=== PATIENT | male | born 1975 | race Caucasian/White ===

== ENCOUNTER 2016-11-19 13:46 | Inpatient (IN) | payer OTHER ==
[2016-11-19 17:01] VITALS: BMI 34.8
--- NOTE | 2016-11-19 20:40 | HP ---
COWS - Scale Resting Pulse: 0= DC 80 or Below Sweatin=Flushed/Facial Moisture Restless Observation: 5= Unable to Sit Still Pupil Size: 1= Pupils >than Normal Bone or Joint Aches: 4=Acute Joint/Muscle Pain Runny Nose/ Eye Tearin= Runny Nose/Eyes GI Upset > 30mins: 3= Vomiting/Diarrhea Tremor Observation: 1= Tremor [place], Not Seen Yawning Observation: 0= None Anxiety or Irritability: 2=Irritable/Anxious Goose Flesh Skin: 0=Smooth Skin COWS Score: 20 CIWA Score - CIWA Score Nausea/Vomitin Muscle Tremors: 4-Moderate,w/Arms Extend Anxiety: 4-Mod. Anxious/Guarded Agitation: 4-Moderately Restless Paroxysmal Sweats: 3 Orientation: 0-Oriented Tacttile Disturbances: 0-None Auditory Disturbances: 0-None Visual Disturbances: 0-None Headache: 2-Mild CIWA-Ar Total Score: 20 Admission ROS BHS - HPI Chief Complaint: C/O OPIOID AND BENZO DEPENDENCE. SEEKING DETOX TXMENT Allergies/Adverse Reactions: Allergies Allergy/AdvReac Type Severity Reaction Status Date / Time No Known Allergies Allergy Verified 11/19/16 20:34 History of Present Illness: 41 Y.O. MALE WITH LONG HX/O OF OPIOID DEPENDENCE ADMITTED TO DETOX. SELF REFERRED. DENIES ANY RECENT DETOX/ REHAB SERVICES. DENIES ANY SIGNIFICANT PERIOD OF CLEAN TIME. Exam Limitations: No Limitations - Ebola screening Have you traveled outside of the country in the last 21 days: No Have you had contact with anyone from an Ebola affected area: No Have you been sick,other than usual withdrawal symptoms: No Do you have a fever: No - Review of Systems Constitutional: Chills, Loss of Appetite, Malaise, Night Sweats, Changes in sleep EENT: reports: Nose Congestion (RUNNY NOSE), Other (DENTAL PAIN) Respiratory: reports: No Symptoms reported Cardiac: reports: No Symptoms Reported GI: reports: Other (GASTRITIS NO COMPLIANT W/ THERAPY) : reports: No Symptoms Reported Musculoskeletal: reports: Back Pain Integumentary: reports: No Symptoms Reported Neuro: reports: No Symptoms reported Endocrine: reports: No Symptoms Reported Hematology: reports: No Symptoms Reported Psychiatric: reports: Anxious Other Systems: Reviewed and Negative Patient History - Patient Medical History Hx Anemia: No Hx Asthma: No Hx Chronic Obstructive Pulmonary Disease (COPD): No Hx Cancer: No Hx Cardiac Disorders: No Hx Congestive Heart Failure: No Hx Hypertension: No Hx Hypercholesterolemia: No Hx Pacemaker: No HX Cerebrovascular Accident: No Hx Seizures: No Hx Dementia: No Hx Diabetes: No Hx Gastrointestinal Disorders: No Hx Liver Disease: No Hx Genitourinary Disorders: No Hx Sexually Transmitted Disorders: No Hx Renal Disease (ESRD): No Hx Thyroid Disease: No Hx Human Immunodeficiency Virus (HIV): No Hx Hepatitis C: No Hx Depression: No Hx Suicide Attempt: No Hx Bipolar Disorder: No Hx Schizophrenia: No Other Medical History: DENIES - Patient Surgical History Past Surgical History: Yes Hx Orthopedic Surgery: Yes (BILAT ORTHOSCOPIC SX) Anesthesia Reaction: No - PPD History Previous Implant?: Yes Documented Results: Negative w/o proof Implanted On Prior [facility] Admission?: No PPD to be Administered?: Yes - Smoking Cessation Smoking history: Current every day smoker Have you smoked in the past 12 months: Yes Aproximately how many cigarettes per day: 5 Cigars Per Day: 0 Hx Chewing Tobacco Use: No Initiated information on smoking cessation: Yes 'Breaking Loose' booklet given: 11/19/16 - Substance & Tx. History Hx Alcohol Use: No Hx Substance Use: Yes Substance Use Type: Cocaine, Heroin, Marijuana, Tranquilizers (BENZO) Hx Substance Use Treatment: Yes ([facility]) - Substances Abused HEROIN Route: Inhalation Frequency: Daily Amount used: 10 BAGS Age of first use: 35 Date of Last Use: 11/18/16 XANAX Route: Oral Frequency: Daily Amount used: 4MG Age of first use: 35 Date of Last Use: 11/18/16 COCAINE Route: Inhalation Frequency: 1-2 times per week Amount used: 3 BAGS Age of first use: 17 Date of Last Use: 11/07/16 THC Route: Smoking Frequency: 3-6 times per week Amount used: 2 DIME BAGS Age of first use: 11 Date of Last Use: 11/18/16 Family Disease History - Family Disease History Family History: Denies Admission Physical Exam BHS - Vital Signs Vital Signs: Vital Signs - 24 hr 11/19/16 16:51 Temperature 98.5 F Pulse Rate 80 Respiratory 18 Rate Blood Pressure 154/87 - Physical General Appearance: Yes: Mild Distress, Sweating, Other (MALODUROUS) HEENTM: Yes: EOMI, Normocephalic, Pharynx Normal, Other (POOR DENTITION/MISSING TEETH) Respiratory: Yes: Chest Non-Tender, Lungs Clear, Normal Breath Sounds, No Respiratory Distress, No Accessory Muscle Use Neck: Yes: No masses,lesions,Nodules, Supple, Trachea in good position Breast: Yes: Breast Exam Deferred Cardiology: Yes: Regular Rhythm, Regular Rate, S1, S2 Abdominal: Yes: Normal Bowel Sounds, Non Tender, Soft, Other (OBESE) Genitourinary: Yes: Within Normal Limits Back: Yes: Normal Inspection Musculoskeletal: Yes: full range of Motion, Gait Steady Extremities: Yes: Normal Range of Motion, Non-Tender, Tremors Neurological: Yes: golf ball marker II-XII NML intact, Fully Oriented, Alert, Motor Strength 5/5 Integumentary: Yes: Normal Color, Dry, Warm Lymphatic: Yes: Within Normal Limits - Diagnostic (1) Nicotine dependence Current Visit: Yes Status: Chronic Qualifiers: Nicotine product type: cigarettes Substance use status: uncomplicated Qualified Code(s): F17.210 - Nicotine dependence, cigarettes, uncomplicated; F17.210 - Nicotine dependence, cigarettes, uncomplicated (2) Opioid dependence with withdrawal Current Visit: Yes Status: Chronic (3) Sedative, hypnotic or anxiolytic dependence with withdrawal, uncomplicated Current Visit: Yes Status: Chronic (4) Cocaine dependence, uncomplicated Current Visit: Yes Status: Chronic (5) Cannabis dependence, uncomplicated Current Visit: Yes Status: Chronic Cleared for Admission [facility] - Detox or Rehab [facility] Level of Care: Medically Managed Detox Regimen/Protocol: Methadone/Valium [facility] Breath Alcohol Content Breath Alcohol Content: 0 Urine Drug Screen - Results Drug Screen Negative: No Urine Drug Screen Results: THC-Marijuana, FACUNDO-Cocaine, OPI-Opiates, BZO- Benzodiazepines
[2016-11-19] MEDS ORDERED: MAGNESIUM HYDROX 2400MG/30ML ORAL SUSPENSION 30 ML CUP PO PRN (20:59)
[2016-11-19] MEDS ORDERED: MAGNESIUM CITRATE 300 ML BOTTLE PO PRN (20:59)
[2016-11-19] MEDS ORDERED: diazePAM 5 MG TABLET PO ONE (20:59)
[2016-11-19] MEDS ORDERED: diazePAM 5 MG TABLET PO PRN (20:59)
[2016-11-19] MEDS ORDERED: diphenhydrAMINE HCL 50 MG CAPSULE PO PRN (20:59)
[2016-11-19] MEDS ORDERED: guaiFENesin/D-METHORPHAN HB 10 ML UNIT-DOSE CUPS PO PRN (20:59)
[2016-11-19] MEDS ORDERED: MENTHOL/PHENOL 1 EACH UD MM PRN (20:59)
[2016-11-19] MEDS ORDERED: METHADONE HCL 10 MG TABLET (FOR DETOX USE ONLY) PO ONE ×2 (20:59→23:00)
[2016-11-19] MEDS ORDERED: P-EPHED 60MG/TRIPROLIDI 2.5MG TABLET PO PRN (20:59)
[2016-11-19] MEDS ORDERED: NICOTINE POLACRILEX 2 MG GUM BC PRN (20:59)
[2016-11-19] MEDS ORDERED: MAG HYDROX/AL HYDROX/SIMETH 30 ML UNIT-DOSE CUP PO PRN (20:59)
[2016-11-19] MEDS ORDERED: ACETAMINOPHEN 325 MG TABLET (FP) PO PRN (20:59)
[2016-11-19] MEDS ORDERED: LOPERAMIDE HCL 2 MG CAPSULE PO PRN (20:59)
[2016-11-19] MEDS ORDERED: THIAMINE HCL 100 MG TABLET (FP) PO SCH (22:00)
[2016-11-19] MEDS: diazePAM 5 MG TABLET PO SCH (22:34)
[2016-11-19] MEDS: NICOTINE 14 MG/24 HOURS TOPICAL PATCH TD SCH (22:36)
[2016-11-19] MEDS: IBUPROFEN 400 MG TABLET (FP) PO PRN (23:42)
[2016-11-20 00:08] LABS: URINE APPEARANCE SLCLOUDY; URINE BILIRUBIN NEGATIVE (NEGATIVE); URINE BLOOD NEGATIVE (NEGATIVE); URINE COLOR YELLOW; URINE GLUCOSE (UA) NEGATIVE (NEGATIVE); URINE KETONE NEGATIVE (NEGATIVE); URINE NITRITE NEGATIVE (NEGATIVE); URINE PROTEIN NEGATIVE (NEGATIVE)
[2016-11-20] MEDS: diazePAM 5 MG TABLET PO SCH ×2 (06:16→14:48)
[2016-11-20] MEDS ORDERED: PRENATAL VITAMINS W/ FOLIC ACID TABLET (FP) PO SCH (10:00)
[2016-11-20] MEDS ORDERED: METHADONE HCL 10 MG TABLET (FOR DETOX USE ONLY) PO SCH (10:00)
[2016-11-20] MEDS ORDERED: RANITIDINE HCL 150 MG TABLET (FP) PO SCH (10:00)
[2016-11-20 10:22] LABS: MCH 29.3 pg (25.7-33.7); MCHC 31.8 g/dl (32.0-35.9); MEAN CELL VOLUME 92.1 fl (80-96); MEAN PLT VOLUME 9.9 fl (7.5-11.1); PLATELET COUNT 174 K/MM3 (134-434); RDW 15.1 % (11.9-15.9); WHITE BLOOD COUNT 6.7 K/mm3 (4.0-10.0)
[2016-11-20] MEDS: NICOTINE 14 MG/24 HOURS TOPICAL PATCH TD SCH (10:29)
[2016-11-20] MEDS: IBUPROFEN 400 MG TABLET (FP) PO PRN ×2 (10:31→19:58)
[2016-11-20 10:49] LABS: ALBUMIN 2.9 g/dl (3.4-5.0); ALK PHOS 50 U/L (45-117); ANION GAP 8 (8-16); BILIRUBIN,TOTAL 0.3 mg/dL (0.2-1.0); CALCIUM 8.2 mg/dL (8.5-10.1); CO2 26 mmol/L (21-32); GLUCOSE,RANDOM 98 mg/dL (74-106); SGOT/AST 14 U/L (15-37); SGPT/ALT 18 U/L (12-78); TOT PROT 5.8 g/dl (6.4-8.2)
--- NOTE | 2016-11-20 11:14 | CONSULT ---
[facility] Psychiatric Consult - Data Date of interview: 11/20/16 Admission source: [facility] Identifying data: First admission to [facility] for this 41 y/o male seeking detox treatment on for heroin,alcohol,cocaine,marihuana and xanax dependence.Patient is a , father of four,domiciled and unemployed.No information about source of income. Substance Abuse History: Discussed in this interview.Patient confirmed this report from [facility]. Smoking Cessation. Smoking history: Current every day smoker. Have you smoked in the past 12 months: Yes. Aproximately how many cigarettes per day: 5. Cigars Per Day: 0. Hx Chewing Tobacco Use: No. Initiated information on smoking cessation: Yes. 'Breaking Loose' booklet given : 11/19/16. - Substance & Tx. History. Hx Alcohol Use: No. Hx Substance Use: Yes. Substance Use Type: Cocaine, Heroin, Marijuana, Tranquilizers (BENZO). Hx Substance Use Treatment: Yes ([facility]). - Substances Abused. HEROIN. Route: Inhalation. Frequency: Daily. Amount used: 10 BAGS. Age of first use: 35. Date of Last Use: 11/18/16. XANAX. Route: Oral. Frequency : Daily. Amount used: 4MG. Age of first use: 35. Date of Last Use: 11/18/16. COCAINE. Route: Inhalation. Frequency: 1-2 times per week. Amount used: 3 BAGS. Age of first use: 17. Date of Last Use: 11/07/16. THC. Route: Smoking. Frequency: 3-6 times per week. Amount used: 2 DIME BAGS. Age of first use: 11. Date of Last Use: 11/18/16 Medical History: Remarkable for arthritis,gastritis,lower back pain and a history of bilateral arthroscopic surgery. Psychiatric History: Patient denies. Physical/Sexual Abuse/Trauma History: No reported history of abuse.Patient declines to comment on his current/past stressors. Additional Comment: Urine Drug Screen Results: THC-Marijuana, FACUNDO-Cocaine, OPI- Opiates, BZO-Benzodiazepines.Noted. Mental Status Exam - Mental Status Exam Alert and Oriented to: Time, Place, Person Cognitive Function: Good Patient Appearance: Well Groomed (obese) Mood: Nervous, Withdrawn, Irritable Affect: Mood Congruent Patient Behavior: Fatigued, Guarded, Cooperative (marginally cooperative) Speech Pattern: Clear, Appropriate Voice Loudness: Normal Thought Process: Goal Oriented Thought Disorder: Not Present Hallucinations: Denies Suicidal Ideation: Denies Homicidal Ideation: Denies Insight/Judgement: Poor Sleep: Poorly, Difficulty falling asleep (wants ambien) Appetite: Good Gait/Station: Other (not observed : patient in bed for the duration of psychiatric interview) Psychiatric Findings - Problem List ([place] 1, 2,3) (1) Opioid dependence with withdrawal Current Visit: Yes Status: Acute (2) Sedative, hypnotic or anxiolytic dependence with withdrawal, uncomplicated Current Visit: Yes Status: Acute (3) Cannabis dependence, uncomplicated Current Visit: Yes Status: Chronic (4) Cocaine dependence, uncomplicated Current Visit: Yes Status: Acute (5) Nicotine dependence Current Visit: Yes Status: Acute Qualifiers: Nicotine product type: cigarettes Substance use status: uncomplicated Qualified Code(s): F17.210 - Nicotine dependence, cigarettes, uncomplicated; F17.210 - Nicotine dependence, cigarettes, uncomplicated (6) Substance induced mood disorder Current Visit: Yes Status: Acute (7) Insomnia Current Visit: Yes Status: Acute - Initial Treatment Plan Initial Treatment Plan: Psychoeducation.Detoxification.Ambien 10 mg po hs prn.Patient is made aware of potential for parasomnias.He is in agreement with this careplan.Observation.
[2016-11-20 11:53] LABS: URINE LEUK ESTERASE Negative (NEGATIVE)
[2016-11-20] MEDS ORDERED: LIDOCAINE VISCOUS 2% ORAL/TOP 20 ML UNIT-DOSE CUP MM PRN (12:05)
[2016-11-20] MEDS ORDERED: GABAPENTIN 300 MG CAPSULE (FP) PO SCH (14:00)
--- NOTE | 2016-11-20 15:51 | PN ---
[facility] CIWA - CIWA Score Nausea/Vomitin Muscle Tremors: None Anxiety: 4-Mod. Anxious/Guarded Agitation: 5 Paroxysmal Sweats: 3 Orientation: 0-Oriented Tacttile Disturbances: 3-Moderate Itch/Numb/Burn Auditory Disturbances: 0-None Visual Disturbances: 0-None Headache: 0-None Present CIWA-Ar Total Score: 20 BHS COWS - Scale Resting Pulse: 1= [place] 81-100 Sweatin= Chills/Flushing Restless Observation: 1= Difficult to Sit Still Pupil Size: 0= Normal to Room Light Bone or Joint Aches: 2= Severe Diffuse Aches Runny Nose/ Eye Tearin= Runny Nose/Eyes GI Upset > 30mins: 2= Nausea/Diarrhea Tremor Observation of Outstretched Hands: 0= None Yawning Observation: 0= None Anxiety or Irritability: 2=Irritable/Anxious Goose Flesh Skin: 3=Piloerection COWS Score: 14 BHS Progress Note (SOAP) Subjective: Vomiting, Diarrhea, Anxious, Sweating, Body Aches. Objective: PT. A & O X 3, OBSERVED AMBULATING ON UNIT. NO ACUTE DISTRESS. 11/20/16 15:48 Vital Signs Temperature 96.8 F L 11/20/16 10:26 Pulse Rate 52 L 11/20/16 10:26 Respiratory Rate 18 11/20/16 10:26 Blood Pressure 151/86 11/20/16 10:26 O2 Sat by Pulse Oximetry (%) Laboratory Tests 11/19/16 11/20/16 11/20/16 23:20 08:00 08:00 WBC 6.7 RBC 4.15 Hgb 12.2 Hct 38.3 MCV 92.1 MCH 29.3 MCHC 31.8 L RDW 15.1 Plt Count 174 MPV 9.9 Sodium 144 Potassium 3.7 Chloride 110 H Carbon Dioxide 26 Anion Gap 8 BUN 27 H Creatinine 1.0 Creat Clearance w eGFR > 60 Random Glucose 98 Calcium 8.2 L Total Bilirubin 0.3 AST 14 L ALT 18 Alkaline Phosphatase 50 Total Protein 5.8 L Albumin 2.9 L Urine Color Yellow Urine Appearance Slcloudy Urine pH 7.0 Ur Specific [place] 1.020 Urine Protein Negative Urine Glucose (UA) Negative Urine Ketones Negative Urine Blood Negative Urine Nitrite Negative Urine Bilirubin Negative Urine Urobilinogen 2.0 Ur Leukocyte Esterase Negative RPR Titer 11/20/16 08:00 WBC RBC Hgb Hct MCV MCH MCHC RDW Plt Count MPV Sodium Potassium Chloride Carbon Dioxide Anion Gap BUN Creatinine Creat Clearance w eGFR Random Glucose Calcium Total Bilirubin AST ALT Alkaline Phosphatase Total Protein Albumin Urine Color Urine Appearance Urine pH Ur Specific [place] Urine Protein Urine Glucose (UA) Urine Ketones Urine Blood Urine Nitrite Urine Bilirubin Urine Urobilinogen Ur Leukocyte Esterase RPR Titer Nonreactive LABS NOTED. Assessment: 11/20/16 15:49 WITHDRAWAL SYMPTOMS. Plan: CONTINUE DETOX. REPEAT BUN ON 11/22/2016 FOR ELEVATED ADMISSION VALUE. PRN IMMODIUM FOR DIARRHEA. INCREASE DAILY PO FLUID INTAKE.
[2016-11-20 19:09] VITALS: BP 160/100; PULSE 60; TEMP 97.3
--- NOTE | 2016-11-20 19:45 | EKG ---
Test Reason : Blood Pressure : / mmHG Vent. Rate : 065 BPM Atrial Rate : 065 BPM P-R Int : 146 ms QRS Dur : 092 ms QT Int : 378 ms P-R-T Axes : 054 055 028 degrees QTc Int : 393 ms NORMAL SINUS RHYTHM NONSPECIFIC ST ABNORMALITY NO PREVIOUS ECGS AVAILABLE CLINICAL CORRELATION IS RECOMMENDED Confirmed by SHEIKH JACQUELYN, JULIAN ([id number] on 11/20/2016 7:45:21 PM Referred By: Pernell Escalera Confirmed By:JULIAN KAUR MD
--- NOTE | 2016-11-20 21:05 | DS ---
[facility] Detox Discharge Summary Admission Date: 11/19/16 Discharge Date: 11/20/16 - Physical Exam Results Vital Signs: Vital Signs Temperature 97.3 F L 11/20/16 18:08 Pulse Rate 60 11/20/16 18:08 Respiratory Rate 16 11/20/16 18:08 Blood Pressure 160/100 11/20/16 18:08 O2 Sat by Pulse Oximetry (%) - Treatment Hospital Course: Discharged Condition Good - Medication Discharge Medications: Ambulatory Orders Albuterol Sulfate Inhaler - [Ventolin Hfa Inhaler -] 1 - 2 inh PO Q4H 11/19/16 Gabapentin [Neurontin -] 300 mg PO TID 11/19/16 Ranitidine [Zantac -] 150 mg PO DAILY 11/19/16 - Diagnosis (1) Nicotine dependence Current Visit: Yes Status: Acute Qualifiers: Nicotine product type: cigarettes Substance use status: uncomplicated Qualified Code(s): F17.210 - Nicotine dependence, cigarettes, uncomplicated; F17.210 - Nicotine dependence, cigarettes, uncomplicated (2) Opioid dependence with withdrawal Current Visit: Yes Status: Acute (3) Sedative, hypnotic or anxiolytic dependence with withdrawal, uncomplicated Current Visit: Yes Status: Acute (4) Cocaine dependence, uncomplicated Current Visit: Yes Status: Acute (5) Cannabis dependence, uncomplicated Current Visit: Yes Status: Chronic - AMA Did Patient Leave Against Medical Advice: No (administrative discharge due to threatening and aggressive behavior )
--- NOTE | 2016-11-20 21:12 | PN ---
S Progress Note Note: ASKED TO SEE PT DUE TO REPEATED THREATENING AND AGGRESSIVE BEHAVIOR TOWARDS STAFF. WAS TOLD SECURITY HAS PRESENTED FOR A PRIOR INCIDENT. CLIENT WAS SPOKEN TO. BEHAVIOR CONT/REPEATED. Vital Signs Temperature 97.3 F L 11/20/16 18:08 Pulse Rate 60 11/20/16 18:08 Respiratory Rate 16 11/20/16 18:08 Blood Pressure 160/100 11/20/16 18:08 O2 Sat by Pulse Oximetry (%) ELEVATED B/P NOTED ASYMPTOMATIC, MEDICALLY STABLE PT REFUSING REPEAT B/P AT THIS TIME ADMINISTRATIVE DC ESCORTED OFF UNIT BY SECURITY, A/O X3 AGITATED
[2016-11-20] MEDS ORDERED: ZOLPIDEM TARTRATE 10 MG TABLET (PARK CARE ONLY) PO PRN (22:00)
[2016-11-20] MEDS ORDERED: BACITRACIN 0.9 GM PACKET TP SCH (22:00)
[2016-11-21] MEDS ORDERED: diazePAM 5 MG TABLET PO SCH (10:00)
[2016-11-21] MEDS ORDERED: METHADONE HCL 5 MG TABLET (FOR DETOX USE ONLY) PO SCH (10:00)
[2016-11-23] MEDS ORDERED: diazePAM 5 MG TABLET PO SCH (10:00)
[2016-11-23] MEDS ORDERED: METHADONE HCL 10 MG TABLET (FOR DETOX USE ONLY) PO SCH (10:00)
[2016-11-24] MEDS ORDERED: METHADONE HCL 5 MG TABLET (FOR DETOX USE ONLY) PO SCH (06:00)
== END 2016-11-20 21:06 | disposition home or self-care (01) | DRG 897 ==
LOC: YASAS 13:46 → Y3N 20:24
PROVIDERS: ADMIT Internal Medicine; ATTEND Internal Medicine
PROC: HZ2ZZZZ Detoxification Services for Substance Abuse Treatment (ICD-10-PCS; principal; 2016-11-19)
DX: F11.23 Opioid dependence with withdrawal (principal); F14.20 Cocaine dependence, uncomplicated; F13.230 Sedative, hypnotic or anxiolytic dependence with withdrawal, uncomplicated; F12.20 Cannabis dependence, uncomplicated; F17.210 Nicotine dependence, cigarettes, uncomplicated; F91.8 Other conduct disorders; F19.24 Other psychoactive substance dependence with psychoactive substance-induced mood disorder; G47.00 Insomnia, unspecified
CPT/HCPCS: 36415; 80053; 81003; 85027; 86593; 93005; 93010